=== PATIENT | male | born 1985 | race Hispanic/Latino ===

== ENCOUNTER 2020-09-06 17:43 | Emergency (ER) | payer OTHER ==
[2020-09-06 18:23] VITALS: BP 119/82
--- NOTE | 2020-09-06 18:43 | Emergency Department Report ---
ED ENT HPI - General Chief complaint: Earache Stated complaint: RT EAR PAIN/NUMB Time Seen by Provider: 09/06/20 18:24 Source: patient Mode of arrival: Ambulatory Limitations: No Limitations - History of Present Illness Initial comments: Patient is a 35-year-old male presents emergency room complaints of right ear pain that began just prior to arrival. He states that he was on an airplane and began to feel a sharp pain in his right ear. He states that his hearing feels slightly muffled. He states it feels like his ear needs to pop. He states over the last 4 weeks he has had cold-like symptoms intermittently and has been tested for COVID-19 4 times and reports it was negative. He states he has intermittent symptoms of mild dry cough, rhinorrhea, ear pressure. He states that 2 weeks ago he completed a course of amoxicillin and steroids from a clinic. He states that that cleared up all his mucus and now his mucus is cleared. He denies any nausea, vomiting, diarrhea, fever, shortness of breath, chest pain, abdominal pain. No past medical history. No allergies medications. - Related Data Previous Rx's Medication Instructions Recorded Last Taken Type Fluticasone [Flonase] 1 spray NS QDAY #1 bottle 09/06/20 Unknown Rx Ibuprofen [Motrin 600 MG tab] 600 mg PO Q8H PRN #20 tablet 09/06/20 Unknown Rx Loratadine 10 mg PO DAILY #30 tablet 09/06/20 Unknown Rx Pseudoeph/Dm/Guaifen/Acetamin 1 each PO Q8HR #20 tablet 09/06/20 Unknown Rx [Duraflu 543-92-992-60 mg Tab] Allergies Allergy/AdvReac Type Severity Reaction Status Date / Time amoxicillin Allergy Unknown Verified 09/06/20 18:17 ED Dental HPI - General Chief complaint: Earache Stated complaint: RT EAR PAIN/NUMB Time Seen by Provider: 09/06/20 18:24 Source: patient Mode of arrival: Ambulatory Limitations: No Limitations - Related Data Previous Rx's Medication Instructions Recorded Last Taken Type Fluticasone [Flonase] 1 spray NS QDAY #1 bottle 09/06/20 Unknown Rx Ibuprofen [Motrin 600 MG tab] 600 mg PO Q8H PRN #20 tablet 09/06/20 Unknown Rx Loratadine 10 mg PO DAILY #30 tablet 09/06/20 Unknown Rx Pseudoeph/Dm/Guaifen/Acetamin 1 each PO Q8HR #20 tablet 09/06/20 Unknown Rx [Duraflu 133-79-885-60 mg Tab] Allergies Allergy/AdvReac Type Severity Reaction Status Date / Time amoxicillin Allergy Unknown Verified 09/06/20 18:17 ED Review of Systems ROS: Stated complaint: RT EAR PAIN/NUMB Other details as noted in HPI Comment: All other systems reviewed and negative ED Past Medical Hx - Past Medical History Previous Medical History?: No - Surgical History Past Surgical History?: No - Social History Smoking Status: Never Smoker - Medications Home Medications: Home Medications Medication Instructions Recorded Confirmed Last Taken Type Fluticasone [Flonase] 1 spray NS QDAY #1 bottle 09/06/20 Unknown Rx Ibuprofen [Motrin 600 MG tab] 600 mg PO Q8H PRN #20 tablet 09/06/20 Unknown Rx Loratadine 10 mg PO DAILY #30 tablet 09/06/20 Unknown Rx Pseudoeph/Dm/Guaifen/Acetamin 1 each PO Q8HR #20 tablet 09/06/20 Unknown Rx [Duraflu 289-17-821-60 mg Tab] ED Physical Exam - General Limitations: No Limitations General appearance: alert, in no apparent distress - Head Head exam: Present: atraumatic, normocephalic - Eye Eye exam: Present: normal appearance - ENT ENT exam: Present: normal orophraynx, mucous membranes moist, other (left TM and canal are normal, there is a moderate wax present in the right canal, visualized portion of the right TM appears normal, unable to fully visualize TM) - Respiratory Respiratory exam: Present: normal lung sounds bilaterally. Absent: respiratory distress, wheezes, rales, rhonchi, stridor, chest wall tenderness, accessory muscle use, decreased breath sounds, prolonged expiratory - Cardiovascular Cardiovascular Exam: Present: regular rate, normal rhythm, normal heart sounds. Absent: systolic murmur, diastolic murmur, rubs, gallop - Neurological Exam Neurological exam: Present: alert, oriented X3 - Psychiatric Psychiatric exam: Present: normal affect, normal mood - Skin Skin exam: Present: warm, dry, intact ED Course Vital Signs 09/06/20 18:18 Temperature 98.4 F Pulse Rate 75 Respiratory 22 Rate Blood Pressure 119/82 O2 Sat by Pulse 98 Oximetry ED Medical Decision Making - Medical Decision Making Patient is a 35-year-old male presents emergency room complaints of right ear pain that began just prior to arrival. He states that he was on an airplane and began to feel a sharp pain in his right ear. He states that his hearing feels slightly muffled. He states it feels like his ear needs to pop. He states over the last 4 weeks he has had cold-like symptoms intermittently and has been tested for COVID-19 4 times and reports it was negative. He states he has intermittent symptoms of mild dry cough, rhinorrhea, ear pressure. He states that 2 weeks ago he completed a course of amoxicillin and steroids from a clinic. He states that that cleared up all his mucus and now his mucus is cleared. He denies any nausea, vomiting, diarrhea, fever, shortness of breath, chest pain, abdominal pain. No past medical history. No allergies medications. Vitals are normal. On exam: left TM and canal are normal, there is a moderate wax present in the right canal, visualized portion of the right TM appears normal, unable to fully visualize TM. Visualized portion of TM appears normal, no TM perforation on visualized portion, no signs of otitis media or otitis externa from visualized portions. He has no clinical signs of bacterial sinusitis. No signs of mastoiditis. He has no clinical signs of bacterial infection. Symptoms likely related to viral illness versus allergies versus eustachian tube dysfunction. Patient given prescription for pseudoephedrine, ibuprofen, Flonase, loratadine. Advised patient Please take medication as prescribed. Please follow-up with primary care doctor. Please follow-up with a ENT doctor. please use debrox ear cleaning solution kit over the counter. Return to the emergency room for any new or worsening symptoms. Critical care attestation.: If time is entered above; I have spent that time in minutes in the direct care of this critically ill patient, excluding procedure time. ED Disposition Clinical Impression: Pressure sensation in right ear, Wax in ear Disposition: DC-01 TO HOME OR SELFCARE Is pt being admited?: No Does the pt Need Aspirin: No Condition: Stable Instructions: Earwax Buildup, Adult, Ear Barotrauma, Adult, Earache, Adult Additional Instructions: Please take medication as prescribed. Please follow-up with primary care doctor. Please follow-up with a ENT doctor. please use debrox ear cleaning solution kit over the counter. Return to the emergency room for any new or worsening symptoms. Prescriptions: Pseudoeph/Dm/Guaifen/Acetamin [Duraflu [id number] mg Tab] 1 each PO Q8HR #20 tablet Fluticasone [Flonase] 1 spray NS QDAY #1 bottle Loratadine 10 mg PO DAILY #30 tablet Ibuprofen [Motrin 600 MG tab] 600 mg PO Q8H PRN #20 tablet PRN Reason: Pain Referrals: [facility] [Provider Group] - 3-5 Days [facility] [Provider Group] - 3-5 Days Time of Disposition: 18:39 Print Language: MAORI
== END 2020-09-06 19:08 | disposition home or self-care (01) ==
LOC: ED 17:43
DX: H61.21 Impacted cerumen, right ear (principal); Z79.1 Long term (current) use of non-steroidal anti-inflammatories (NSAID); Z79.899 Other long term (current) drug therapy; Z88.1 Allergy status to other antibiotic agents
CPT/HCPCS: 99281